=== PATIENT | male | born 1965 | race Caucasian/White ===

== ENCOUNTER 2024-03-06 10:04 | Outpatient (CLI) | payer OTHER, SELFPAY ==
--- NOTE | ~2024-03-06 | XR_ITS ---
XR chest 2V DATE: 03/06/2024 10:17 INDICATION: Chronic cough TECHNIQUE: 2 views COMPARISON: None FINDINGS: Normal heart size. No hilar or mediastinal enlargement. No pulmonary infiltrate or consolid ation, pleural effusion or pulmonary vascular congestion or pneumothorax is detected. IMPRESSION: No active cardiopulmonary disease Reviewed, dictated and finalized at location B.
== END 2024-03-06 10:05 ==
LOC: MICIMG 10:06
PROVIDERS: PCP Physician Assistant; Visit Provider Physician Assistant
DX: R05.3 Chronic cough (principal)
CPT/HCPCS: 71046

== ENCOUNTER 2024-09-28 00:23 | Day surgery (SDC) | payer OTHER, SELFPAY ==
[2024-09-18 12:26] VITALS: BMI 31.3
[2024-09-28 07:38] VITALS: BP 150/84; PULSE 88; RESP 18; TEMP 35.6; O2SAT 98; BMI 30.9
[2024-09-28] MEDS: LACTATED RINGERS 1,000 ML 150 ML IV CONT (07:49)
[2024-09-28 07:52] LABS: Glucose Point of Care 145 mg/dl (65-105)
--- NOTE | 2024-09-28 08:01 | P.HP_ITS ---
History of Present Illness History of Present Illness Consent: Risks, benefits, and alternatives have been discussed and questions answered. Patient agrees to proceed with procedure. Chief complaint: screening for malignant neoplasm of colon Narrative: John Harp is a 58 year old male here for first screening colonoscopy Review of Systems Review of Systems: All systems reviewed & are unremarkable except as noted in HPI and below PMFSH Past Medical History Medical History (Updated 09/28/24 @ 08:03 by Checo Webber MD) Colon cancer screening H/O: hypertension H/O diabetes mellitus Diabetes mellitus Hypertension Family History Family History (Updated 05/16/20 @ 15:14 by Cece Sherman [facility]) Father Glaucoma Mother Diabetes mellitus Sibling Non Hodgkin's lymphoma Grandparent Malignant neoplasm of prostate Social History Social History (Updated 05/16/20 @ 15:15 by Cece Sherman [facility]) Smoking status: Current some day smoker Tobacco type: cigars Alcohol intake: current Drinks per week: 4 Substance use: never Substance use type: does not use Living arrangements: with family Spiritual care concerns: No Meds Home Medications and Allergies Home Medications ?Medication ?Instructions ?Recorded ?Confirmed ?Type dapagliflozin propan 2.5 1,000 ea PO DAILY 09/18/24 09/28/24 History mg-metformin ER 1,000 mg tablet,ext rel 24hr (Xigduo XR) losartan 50 mg tablet 100 mg PO DAILY 09/18/24 09/28/24 History Allergies Allergy/AdvReac Type Severity Reaction Status Date / Time No Known Allergies Allergy Mild Verified 09/28/24 07:37 Vital Signs Vital Signs - 24 hr 09/28/24 07:38 Temperature 96.0 F L Pulse Rate 88 Respiratory Rate 18 Blood Pressure 150/84 H Pulse Oximetry 98 Oxygen Delivery Room Air Exam Const: General: comfortable and no acute distress HENMT: Face/Nose/Sinus: Normal nares present Eyes: General: appearance normal, both eyes and all related structures Neck: Neck: no JVD Resp: Auscultation: clear to auscultation bilaterally Cardio: Rate: regular rate Rhythm: regular rhythm GI: Inspection: non-distended GI Palp: Yes Soft to palpation Skin: General skin exam: normal color Neuro: General: gait normal Speech: normal speech Extrem: General: normal to inspection Psych: Mental Status: mental status grossly normal Assessment and Plan Assessment and plan (1) Colon cancer screening: Code(s): Z12.11 - Encounter for screening for malignant neoplasm of colon Status: Acute Assessment and Plan: colonoscopy
--- NOTE | 2024-09-28 08:09 | WPDANESEPPF ---
Anes - Initial Pre Proc Eval Procedure: Operation Date: 09/28/24 08:30 Proposed Procedures p Screening Colonoscopy - Checo Webber MD Date/Time: 09/28/24 08:09 Surgeon: Checo Webber MD Pre Op Diagnosis: neoplasm screening Pre Op Diagnosis: screening for malignant neoplasm of colon Patient Data Age: 58 Gender: M Height: 1.7 m Weight: 89.5 kg Last Vital Signs Temp 35.6 C L 09/28/24 07:38 Pulse 88 09/28/24 07:38 Resp 18 09/28/24 07:38 BP 150/84 H 09/28/24 07:38 Pulse Ox 98 09/28/24 07:38 O2 Del Method Room Air 09/28/24 07:38 Allergies Allergy/AdvReac Type Severity Reaction Status Date / Time No Known Allergies Allergy Mild Verified 09/28/24 07:37 Home Medications ?Medication ?Instructions ?Recorded ?Confirmed ?Type dapagliflozin propan 2.5 1,000 ea PO DAILY 09/18/24 09/28/24 History mg-metformin ER 1,000 mg tablet,ext rel 24hr (Xigduo XR) losartan 50 mg tablet 100 mg PO DAILY 09/18/24 09/28/24 History Laboratory Tests 09/28/24 07:47 POC Capillary Glucose 145 H mg/dl (65-105) Patient hx anesthesia problems: none Family hx anesthesia problems: none Results Review: All pre-operative results and documents have been reviewed as part of the pre-operative evaluation. [facility], [facility] Past Medical History Medical History Colon cancer screening H/O: hypertension H/O diabetes mellitus Diabetes mellitus Hypertension Family History Family History Father Glaucoma Mother Diabetes mellitus Sibling Non Hodgkin's lymphoma Grandparent Malignant neoplasm of prostate Social History Social History Smoking status: Current some day smoker Tobacco type: cigars Alcohol intake: current Drinks per week: 4 Substance use: never Substance use type: does not use Living arrangements: with family Spiritual care concerns: No Anes - Eval Final PreProcedure Day of Procedure 09/28/24 08:09 Patient weight: obese Heart: regular rate and rhythm Lungs: clear to auscultation Airway: Mallampati scale class III Neurological: alert and oriented Last oral intake: >/= 8 hours ASA classification: III Emergent: no Anesthetic plan: proceed Anesthesia type and monitoring: general GIVS and standard monitoring Results Review: All pre-operative results and documents have been reviewed as part of the pre-operative evaluation. Informed Consent: The patient's anesthetic plan and its attendant risks and benefits were discussed with the patient/family/POA. Questions were solicited and answers provided to the satisfaction of the patient/family/POA.
[2024-09-28 08:25] VITALS: BP 108/77; PULSE 76; RESP 18; O2SAT 97
[2024-09-28 08:35] VITALS: BP 115/81; PULSE 80; RESP 17; O2SAT 97
[2024-09-28 08:45] VITALS: BP 123/86; PULSE 79; RESP 19; O2SAT 99
--- NOTE | 2024-09-28 08:51 | SUR.PHASEII ---
Pt's brother from colon cancer. Dr. Vidales made aware. Pt to come back for his next colonoscopy in 5 years. Pt and family made aware.
--- OUTSIDE RECORDS SUMMARY | 2024-10-03 08:39 | XMS_ITS | Continuity of Care Document ---
Author Organization [facility] [place] Address [address] [place] [address] Care Team Providers Care Staff Registered Nurse Name Role Phone JEAN LJOA Primary Care Provider Unavailab le Assessment Encounter Date Assessment Date Assessment LastModified by Organization Details LastModified Time 07/17/2024 07/17/2024 Scheduled Colonoscopy: Sep 28 At [facility] planned. Not available 07/17/2024 10:13:09 Plan of Treatment Reminders Order Date Submit Date Provider Last Modified By Organization Details Last Modified Time Details Appointments ANY 15 2024 08:30A M ZAHRA Triplett Not available Not available Not available Lab lipid panel, serum 2023 025 [facility], [address], [place], [address], 07/17/2024 10:27:02 HbA1c (hemoglob in A1c), blood 2023 025 [facility], [address], [place], [address], 07/17/2024 10:27:02 CBC w/ auto diff 2023 025 [facility], [address], [place], [address], 07/17/2024 10:27:02 CMP, serum or plasma 2023 025 [facility], [address], [place], [address], 07/17/2024 10:27:02 Referral None recorded. Procedures None recorded. Surgeries None recorded. Imaging None recorded. Medication Orders Xigduo XR 2.5 mg-1,000 mg tablet,ex tended release 2023 [facility] [id number], [place], [address], 07/17/2024 10:27:13 losartan 100 mg tablet 2023 [facility] [id number], [place], [address], 07/17/2024 10:27:15 Patient TargetsNo targets recorded. Patient Instructions Encounter Date Encounter Id Patient Instructions Last Modified By Organization Details Last Modified Time 07/17/2024 [id number] A healthy lifestyle: care instructions Not available 07/17/2024 10:27:02 Reason for Referral None Reported. Problems Name Problem SNOMED Code Status Onset Date Resolution Date Notes Provider Name and Address Organization Details Recorded Time Uncontrolle d type 2 diabetes mellitus 440594440 Active 2023 ZAHRA Triplett Attn: Octavio sexton,[address] [facility], [place], [address], [facility] - [facility] 4 10:32:38 Benign essential hypertensio n 1762675 Active 2023 ZAHRA Triplett Attn: Octavio sexton,[address] [facility], [place], [address], [place] [facility] 4 10:32:39 Obesity 817471725 Active 2023 ZAHRA Triplett Attn: Octavio sexton,[address] [facility], [place], [address], [place] [facility] 4 10:33:18 Body mass index 30+ - obesity 170663157 Active 2023 ZAHRA Triplett Attn: Octavio sexton[address] [facility], [place], [address], [place] [facility] 4 10:33:19 Family history of cancer of colon 037849000 Active 2023 ZAHRA Triplett Attn: Octavio sexton,[address] [facility], [place], [address], [place] [facility] 4 15:27:40 Long-term drug therapy Active 2023 ZAHRA Triplett Attn: Octavio sexton,[address] [facility], [place], [address], [place] [facility] 4 15:27:51 Dyslipidemi a 681600634 Active 2023 ZAHRA Triplett Attn: Octavio sexton,[address] [facility], [place], [address], [place] [facility] 4 15:28:20 Lesion of skin of face 296094756820 Active 2023 ZAHRA Triplett Attn: Octavio sexton,[address] [facility], [place], [address], [place] [facility] 4 09:19:39 Problem Notes None recorded. Medical Equipment None Reported. Allergies No known drug allergies Medications Name Sig Start Date Stop Date Status Note LastModified by Organization Details LastModified Time losartan 50 mg tablet TAKE 1 TABLET BY MOUTH EVERY DAY 07/17 completed Not Available Not Available Not Available erythromyci n 5 mg/gram (0.5 %) eye ointment APPLY 1 CM RIBBON INTO THE LOWER CONJUNCTI AUBREE SAC(S) IN THE AFFECTED EYE(S) 3 TIMES PER DAY active Not Available Not Available No t Available montelukast 10 mg tablet TAKE 1 TABLET BY MOUTH EVERY DAY 04/10 completed Not Available Not Available Not Available losartan 100 mg tablet TAKE 1 TABLET BY MOUTH EVERY DAY. STOP 50 MG DOSE active Not Available Not Available No t Available Xigduo XR 2.5 mg-1,000 mg tablet,exte nded release Take 1 tablet every day by oral route with meal(s). 2023 active Not Available Not Available Not Avai lable Vitals Date Recorded Body height Body mass index (BMI) Body weight Heart rate Oxygen saturation Oxygen saturation in Arterial blood by Pulse oximetry Systolic blood pressure Diastolic blood pressure Provider Name and Address Organization Details Last Updated DateTime 4 170.18 cm 32.5 kg/m2 64345.3 4 g 65 /min 98 % 98 % 150 mm[Hg] 98 mm[Hg] Brett Rubio MA [facility] 09:53:10 Date Recorded Systolic blood pressure Diastolic blood pressure Provider Name and Address Organization Details Last Updated DateTime 07/17/2024 150 mm[Hg] 90 mm[Hg] ZAHRA Triplett Attn: Accounting,[address] [place], [address], [facility] 07/17/2024 10:29:09 Social History Question Answer Notes LastModified by Organizat ion Details LastModified Time Tobacco Smoking Status Never Smoker Angela Mesa MA null, [facility] 03/06/2024 09:47:30 Do You Have An Advance Directive? No Information not available 04/10/2024 What Is Your Level Of Alcohol Consumption? Occasional Information not available 03/06/2024 Are You Blind Or Do You Have Difficulty Seeing? No Information not available 03/06/2024 What Is Your Level Of Caffeine Consumption? Moderate Information not available 04/10/2024 In The 14 Days Before Symptom Onset, Have You Had Close Contact With A Laboratory-confir med COVID-19 While That Case Was Ill? No Information not available 04/10/2024 In The 14 Days Before Symptom Onset, Have You Had Close Contact With A Person Who Is Under Investigation For COVID-19 While That Person Was Ill? No Information not available 04/10/2024 Have You Been To An Area Known To Be High Risk For COVID-19? No Information not available 04/10/2024 Are You Deaf Or Do You Have Serious Difficulty Hearing? Yes Information not available 03/06/2024 What Type Of Diet Are You Following? REGULAR Information not available 04/10/2024 Are There Any Guns Present In Your Home? No Information not available 04/10/2024 What Was The Date Of Your Most Recent Tobacco Screening? 09/11/2024 crevisma Information not available 09/11/2024 What Is Your Relationship Status? Information not available 03/06/2024 Do You Use Your Seat Belt Or Car Seat Routinely? Yes Information not available 03/06/2024 Do You Have Smoke And Carbon Monoxide Detectors In Your Home? Yes Information not available 04/10/2024 Do You Feel Stressed (tense, Restless, Nervous, Or Anxious, Or Unable To Sleep At Night)? [id number] Information not available 03/06/2024 Do You Use Any Illicit Or Recreational Drugs? No Information not available 04/10/2024 Do You Use Sunscreen Routinely? Yes Only In The Sun Information not available 04/10/2024 Has Tobacco Cessation Counseling Been Provided? No Information not available 04/10/2024 Do You Or Have You Ever Used Any Other Forms Of Tobacco Or Nicotine? No Information not available 04/10/2024 Sex: Male Functional Status Question Answer Note LastModified by Organizat ion Details LastModified Time Are you able to care for yourself? Yes Information not available 03/06/2024 What is your exercise level? Occasional walking Information not available 04/10/2024 Mental Status None recorded. Family History Relationship Description Onset Age of this Age Resolved Age Notes LastModified by Organization Details LastModified Time Brother Malignant tumor of colon [email or web address] Not available 2023 10:32:52 Father Dementia [email or web address] Not availabl e 03/06/2024 10:32:58 Sister Diabetes mellitus [email or web address] Not available 2023 10:33:05 Sister Hypertensive disorder apaytonma Not available 2023 10:33:10 Medical History Condition Response Diabetes Y Past Encounters Encounter ID Performer Location Encounter Start Date Encounter Closed Date Diagnosis/Indication Diagnosis SNOMED-CT Code Diagnosis ICD10 Code [id number] ZAHRA Triplett [facility] [place] [address] [place] [address] 07/17/2024 09:47:04 07/17/2024 11:02:39 Uncontrolled type 2 diabetes mellitus 308970635 E11.65 Benign ess ential hypertension 1771871 I10 Dyslipidemia 635305199 E 78.5 Long-term drug therapy 929063570 Z79.899 Body mass index 30+ - obesity 013549275 Z68.32 Obesity 005050908 E66.9 Family his tory of cancer of colon 431775836 Z80.0 Health Concerns Section Related Observation LastModified by Organization Detai ls LastModified Time None Recorded Concern Status LastModified by Organization Details LastModified Time None Recorded Payers Encounter Date Sequence Insurance Name Policy Number Policy Mathis Covered Member ID Mathis Member ID Guarantor Name 07/17/2024 1 [employer] [facility] (POS II) [id number] Alon Harp [id number] Alon Harp Notes Date Note Type Note Provider Name and Address Organization Details Recorded Time 07/17/20 24 text/htm l DiabetesReported bypatient.Duration:chronic Control:usually well controlled; improved since last visit; treated with diet and oral medications; hemoglobin A1C has been 8-9; hemoglobin A1C goal is less than 7 Compliance:compliant with medications; compliant with follow-up visits;noncompliant with diet;noncompliant with home glucose monitoring; no side effects from medications Self Care:checking feet regularly;not monitoring home glucose;not seeing eye doctor yearly;not taking aspirin daily Associated Symptoms:no weight gain; no weight loss; no dizziness; no sweats; no headaches; no confusion; no increased thirst; no increased appetite; no increased urination; no blurred vision; no numbness of feet; no calluses on feetNotes: A1c is down to 7.2% from 8.3%.HyperlipidemiaReported bypatient.Type of hyperlipidemia:hypercholester olemia Duration:new onset Control:not at goal Current Therapy:last cholesterol level: (176); last LDL level: (108); last triglyceride level: (125); last HDL level: (44) Compliance:compliant;noncompl iant with diet;does not exercise Complications:no coronary artery disease; no peripheral artery disease; no cardiovascular disease Risk Factors:diabetes;hypertension ;obesity;low HDL levelHypertensionReported bypatient.Notes:started on losartan 50mg daily at last visit. ZAHRA Triplett Attn: Accounting,[address] [place], [address], [facility] 08/09/2024 19:22:02
--- OUTSIDE RECORDS SUMMARY | 2024-10-03 08:39 | XMS_ITS | Continuity of Care Document ---
Author Organization [facility] Address [address] [place] [address] Care Team Providers Care Hardwood Floor Finisher Name Role Phone JEAN LOJA Primary Care Provider Unavailab le Assessment Encounter Date Assessment Date Assessment LastModified by Organization Details LastModified Time 09/11/2024 09/11/2024 Patient is due for an annual diabetic eye exam and we have encouraged him to schedule with [facility] eye care in [facility]. Not available 09/11/2024 09:19:58 Plan of Treatment Reminders Order Date Submit Date Provider Last Modified By Organization Details Last Modified Time Details Appointments ANY 15 025 08:30AM ZAHRA Triplett Not available Not available Not available Lab None record ed. Referral None record ed. Procedures None record ed. Surgeries None record ed. Imaging None record ed. Medication Orders None record ed. Patient TargetsNo targets recorded. Patient InstructionsNo instructions recorded. Reason for Referral None Reported. Problems Name Problem SNOMED Code Status Onset Date Resolution Date Notes Provider Name and Address Organization Details Recorded Time Uncontrolle d type 2 diabetes mellitus 311716341 Active 2023 ZAHRA Triplett Attn: Octavio g,[address] [facility], [place], [address], [facility] 4 10:32:38 Benign essential hypertensio n 9048003 Active 2023 ZAHRA Tripeltt Attn: Octavio g,[address], [place], [address], [facility] 4 10:32:39 Obesity 091912392 Active 2023 ZAHRA Triplett Attn: Octavio sexton,[address] [facility], [place], [address], [place] [facility] 4 10:33:18 Body mass index 30+ - obesity 507886684 Active 2023 ZAHRA Triplett Attn: Octavio sexton,[address] [facility], [place], [address], [place] [facility] 4 10:33:19 Family history of cancer of colon 720513786 Active 2023 ZAHRA Triplett Attn: Octavio sexton,[address] [place], [address], [place] [facility] 4 15:27:40 Long-term drug therapy Active 2023 ZAHRA Triplett Attn: Octavio sexton,[address] [place], [address], [place] [facility] 4 15:27:51 Dyslipidemi a 519763788 Active 2023 ZAHRA Triplett Attn: Octavio sexton,[address] [place], [address], [facility] 4 15:28:20 Lesion of skin of face 618157669229 Active 2023 ZAHRA Triplett Attn: Octavio sexton,[address] [place], [address], [place] [facility] 4 09:19:39 Problem [...] height Body mass index (BMI) Body weight Oxygen saturation Oxygen saturation in Arterial blood by Pulse oximetry Heart rate Systolic blood pressure Diastolic blood pressure Provider Name and Address Organization Details Last Updated DateTime 4 170.18 cm 32.2 kg/m2 55460.3 1 g 97 % 97 % 90 /min 140 mm[Hg] 80 mm[Hg] Adrienne Valentin MA [facility] 08:55:01 Date Recorded Respiratory rate Systolic blood pressure Diastolic blood pressure Provider Name and Address Organization Details Last Updated DateTime 09/11/2024 16 /min 128 mm[Hg] 82 mm[Hg] ZAHRA Triplett Attn: Accounting, [address] [place], [address], [facility] 09/11/2024 09:18:52 Social History Question Answer Notes LastModified by Organizat ion Details LastModified Time Tobacco Smoking Status Never Smoker Angela Mesa MA [facility], [facility] 03/06/2024 09:47:30 Do You Have An Advance [...] Anxious, Or Unable To Sleep At Night)? [id number] Information not available 03/06/2024 Do You Use [...] Diagnosis/Indication Diagnosis SNOMED-CT Code Diagnosis ICD10 Code [id number] ZAHRA Triplett [facility] [place] [facility] [address] [place] [address] 09/11/2024 08:36:59 09/11/2024 12:43:48 Benign essential hypertension 0119010 I10 Lesion of skin of face 0290704999 06 L98.9 Long-term drug therapy 959823331 Z79.899 Health Concerns Section Related Observation LastModified by Organization Detai ls LastModified Time None Recorded Concern Status LastModified by Organization Details LastModified Time None Recorded Payers Encounter Date Sequence Insurance Name Policy Number Policy Mathis Covered Member ID Mathis Member ID Guarantor Name 09/11/2024 1 [facility] (POS II) [id number] Alon Harp [id number] Alon Harp Notes Date Note Type Note Provider Name and Address Organization Details Recorded Time 09/11/2024 text/html DiabetesReported bypatient.Duration:chr onic Control:usually well controlled; improved since last visit; [...] feetNotes: A1c is down to 7.2% from 8.3%.HypertensionRepor escobar bypatient.Notes:starte d on losartan 50mg daily at last visit. Patient has a skin lesion on the right periorbital region that has been for approximately 3 months to 4 months. It does not bother him at all there has been no drainage or discharge he feels like it might be getting just a little bit bigger. He has also had a stye on his right lower eyelid that resolved but there still a bit of a red spot there. He has not seen the eye doctor. ZAHRA Triplett Attn: Accounting,[address] [place], [address], [place] [facility] 09/11/2024 09:20:14
--- OUTSIDE RECORDS SUMMARY | 2024-10-03 08:39 | XMS_ITS | Encounter Summary ---
Author Organization [facility] Address [address] [place] [address] Care Team Providers Care Internal Medicine Specialist Name Role Phone Unavailable Primary Care Provider Unavailabl e Encounter Details Date Type Department Care Team (Late st Contact Info) Description 10/12/2020 Lab Requisition [facility] Testing [facility] [address] [place] [address] Miles, [place] [address] [place] [address] Social History Tobacco Use Types Packs/Day Years Used Date Smoking Tobacco: Never Assessed Sex and Gender Information Value Date Recorded Sex Assigned at Not on file Legal Sex Male 9:11 AM [facility] THE [facility] Gender Identity Not on file Sexual Orientation Not on file documented as of this encounter Plan of Treatment Not on file documented as of this encounter Procedures Procedure Name Priority Date/Time Associated Diagnosis Comments SARS-COV-2 PCR [facility] ONLY Routine 10/12/2020 9:19 AM DIRECT[facility] THE [facility] documented in this encounter Visit Diagnoses Not on filedocumented in this encounter
--- OUTSIDE RECORDS SUMMARY | 2024-10-03 08:39 | XMS_ITS | Encounter Summary ---
Author Organization [facility] Address [address] [place] [address] Care Team Providers Care Rehabilitator Name Role Phone Unavailable Primary Care Provider Unavailabl e Encounter Details Date Type Department Care Team (Late st Contact Info) Description 10/12/2020 9:30 AM TRAVELER CHANGER Rapid Evaluation [facility] Testing [address] [address] Social History Tobacco Use Types Packs/Day Years Used Date Smoking Tobacco: Never Assessed Sex and Gender Information Value Date Recorded Sex Assigned at Not on file Legal Sex Male 9:11 AM TRAVELER CHANGER Gender Identity Not on file Sexual Orientation Not on file documented as of this encounter Plan of Treatment Not on file documented as of this encounter Visit Diagnoses Not on filedocumented in this encounter
--- OUTSIDE RECORDS SUMMARY | 2024-10-03 08:39 | XMS_ITS | Clinical Summary ---
Author Organization [facility] Care Team Providers Care Wafer Polishing Worker Name Role Phone Unavailable Primary Care Provider Unavailabl e Social History Tobacco Use Types Packs/Day Years Used Date Smoking Tobacco: Never Assessed Sex and Gender Information Value Date Recorded Sex Assigned at Not on file Legal Sex Male 9:11 AM [employer] Gender Identity Not on file Sexual Orientation Not on file Plan of Treatment Health Maintenance Due Date Last Done Comments Hepatitis C Virus (HCV) Screening 1966 TdaP Immunization 1966 Hepatitis B Immunization (1 of 3 - 19+ 3-dose series) 1985 Colonoscopy 12/18/2011 Colorectal Cancer Screening 12/18/2011 Cologuard 2016 Immunochemical Fecal Occult Blood 2016 Zoster Immunization (1 of 2) 2016 PSA Discussion 2021 SARS-COV-2 Immunization ( season) 2023 Influenza Immunization (Seas on Ended) 2024 Meningococcal Immunization (ACWY) Aged Out No longer eligible based on patient's age to complete this topic Pneumococcal Immunization Combined Aged Out No longer eligible based on patient's age to complete this topic Rotavirus Immunization Aged Out No lo nger eligible based on patient's age to complete this topic
--- OUTSIDE RECORDS SUMMARY | 2024-10-03 08:39 | XMS_ITS | Data Portability ---
Author Organization Jessica MONTALVO Address [address] [place] [address] Care Team Providers Care Broodmare Foreman Name Role Phone JEAN LOJA Primary Care Provider Unavailab le Assessment Encounter Date Assessment Date Assessment LastModified by Organization Details LastModified Time 07/17/2024 07/17/2024 Scheduled Colonoscopy: Sep 28 At [facility] planned. Not available 07/17/2024 10:13:09 09/11/2024 09/11/2024 Patient is due for an annual diabetic eye exam and we have encouraged him to schedule with [facility] in [facility]. Not available 09/11/2024 09:19:58 Plan of Treatment Reminders Order Date Submit Date Provider Last Modified By Organization Details Last Modified Time Details Appointments ANY 15 2024 08:30A M ZAHRA Triplett Not available Not available Not available Lab TSH + free T4, serum 2023 024 [facility], [address], [place], [address], 03/07/2024 10:38:40 lipid panel, serum 2023 024 [facility], [address], [place], [address], 03/07/2024 10:38:41 CBC w/ auto diff 2023 024 [facility], [address], [place], [address], 03/07/2024 10:38:45 CMP, serum or plasma 2023 024 [facility], [address], [place], [address], 03/07/2024 10:38:42 vitamin B12 + folate, serum or blood 2023 024 [facility], [address], [place], [address], 03/07/2024 10:38:43 PSA, total, serum or plasma 2023 024 [facility], [address], [place], [address], 03/07/2024 10:38:46 HbA1c (hemoglob in A1c), blood 2023 024 [facility], [address], [place], [address], 03/07/2024 10:38:44 albumin/c reatinine , mass ratio, urine 2023 024 [facility], [address], [place], [address], 03/07/2024 10:38:39 microalbu min, urine 2023 024 [facility], [address], [place], [address], 03/20/2024 11:53:41 lipid panel, serum 2023 024 [email or web address] [facility], [address] [facility], [place], [address], 09/01/2024 15:32:01 HbA1c (hemoglob in A1c), blood 2023 024 [facility], [address], [place], [address], 06/29/2024 16:45:06 CBC w/ auto diff 2023 024 [email or web address] [facility], [address], [place], [address], 09/09/2024 15:41:57 CMP, serum or plasma 2023 024 [email or web address] [id number] [facility], [address], [place], [address], 09/09/2024 15:42:03 lipid panel, serum 2023 025 [facility], [address], [facility] [address], [place], [address], 07/17/2024 10:27:02 HbA1c (hemoglob in A1c), blood 2023 025 [facility], [address], [place], [address], 07/17/2024 10:27:02 CBC w/ auto diff 2023 025 [facility], [address], [place], [address], 07/17/2024 10:27:02 CMP, serum or plasma 2023 025 [facility], [address], [place], [address], 07/17/2024 10:27:02 Referral None recorded. Procedures colonosco py screening (PROC) [address] [facility], [address], [email or web address], [place], [address], 09/09/2024 15:41:22 colonosco py screening (PROC) 2023 [facility], [address], [email or web address], [place], [address], 09/30/2024 17:31:39 Surgeries None recorded. Imaging XR, chest, 2 view 2023 [facility], [address], [place], [address], 03/07/2024 08:02:[address] 10 mg tablet 2023 024 [facility] [address], [address], 04/10/2024 09:44:02 losartan 50 mg tablet 2023 024 [facility] [address], [address], 07/17/2024 10:25:39 Xigduo XR 2.5 mg-1,000 mg tablet,ex tended release 2023 024 [facility] [address], [place], [address], 07/17/2024 10:27:13 losartan 100 mg tablet 2023 024 [facility] [address], [address], 07/17/2024 10:27:15 Patient TargetsNo targets recorded. Patient Instructions Encounter Date Encounter Id Patient Instructions Last Modified By Organization Details Last Modified Time 03/06/2024 [id number] A healthy lifestyle: care instructions Not available 03/06/2024 10:33:16 04/10/2024 [id number] A healthy lifestyle: care instructions Not available 04/10/2024 10:16:52 07/17/2024 [id number] A healthy lifestyle: care instructions Not available 07/17/2024 10:27:02 Reason for Referral None Reported. Results Created Date Observation Date Name Description Value Unit Range Abnormal Flag Note LastModifiedBy Organization Detail LastModifiedTime 03/06/20 24 03/07/2024 ALBUM IN/CR EATIN INE RATIO ,URIN E creatinine, urine 42.8 mg/dL notest ab. Not Available [facility] ([facility]) [address] [place], [address], 03/07/2024 10:38:39 03/06/20 24 03/07/2024 ALBUM IN/CR EATIN INE RATIO ,URIN E albumin, urine 5.2 ug/mL notest ab. Not Available [facility] ([facility]) [address] [place], [address], 03/07/2024 10:38:39 03/06/20 24 03/07/2024 ALBUM IN/CR EATIN INE RATIO ,URIN E alb/creat ratio 12 mg/g_ creat 0-29 Geovanna l: 0 - 29 Moder ately incre ased: 30 - 300 Sever kamari incre ased: >300 Not Available [facility] ([facility]) [address] [place], [address], 03/07/2024 10:38:39 03/06/20 24 03/07/2024 TSH+F REE T4 TSH 0.785 uIU/m L 0.450- 4.500 Not Available [facility] ([facility]) [address] [place], [address], 03/07/2024 10:38:40 03/06/20 24 03/07/2024 TSH+F REE T4 T4,free(dire ct) 1.42 NG/dL 0.82-1 .77 Not Available [facility] ([facility]) [address] [place], [address], 03/07/2024 10:38:40 03/06/20 24 03/07/2024 LIPID PANEL WITH LDL/H DL RATIO cholesterol, total 165 mg/dL 100-19 9 Not Available [facility] ([facility]) [address] [place], [address], 03/07/2024 10:38:41 03/06/20 24 03/07/2024 LIPID PANEL WITH LDL/H DL RATIO triglyceride s 132 mg/dL 0-149 Not Available [facility] ([facility]) [address] [place], [address], 03/07/2024 10:38:41 03/06/20 24 03/07/2024 LIPID PANEL WITH LDL/H DL RATIO HDL cholesterol 33 mg/dL >39 below low normal Not Available [facility] ([facility]) [address] [place], [address], 03/07/2024 10:38:41 03/06/20 24 03/07/2024 LIPID PANEL WITH LDL/H DL RATIO VLDL cholesterol gaston 24 mg/dL 5-40 Not Available [facility] ([facility]) [address] [place], [address], 03/07/2024 10:38:41 03/06/20 24 03/07/2024 LIPID PANEL WITH LDL/H DL RATIO LDL chol calc ([facility]) 108 mg/dL 0-99 above high normal Not Available [facility] ([facility]) [address] [place], [address], 03/07/2024 10:38:41 03/06/20 24 03/07/2024 LIPID PANEL WITH LDL/H DL RATIO LDL/HDL ratio 3.3 ratio 0.0-3. 6 LDL/H DL Ratio Men Women 1/2 Avg.R isk 1.0 1.5 Avg.R isk 3.6 3.2 2X Avg.R isk 6.2 5.0 3X Avg.R isk 8.0 6.1 Not Available [facility] ([facility]) [address] [place], [address], 03/07/2024 10:38:41 03/06/20 24 03/07/2024 COMP. METAB OLIC PANEL (14) glucose 161 mg/dL 70-99 above high normal Not Available [facility] ([facility]) [address] [place], [address], 03/07/2024 10:38:42 03/06/20 24 03/07/2024 COMP. METAB OLIC PANEL (14) BUN 10 mg/dL 6-24 Not Available [facility] ([facility]) [address] [place], [address], 03/07/2024 10:38:42 03/06/20 24 03/07/2024 COMP. METAB OLIC PANEL (14) creatinine 0.95 mg/dL 0.76-1 .27 Not Available [facility] ([facility]) [address] [place], [address], 03/07/2024 10:38:42 03/06/20 24 03/07/2024 COMP. METAB OLIC PANEL (14) eGFR 93 mL/mi n/1.7 3 >59 Not Available [facility] ([facility]) [address] [place], [address], 03/07/2024 10:38:42 03/06/20 24 03/07/2024 COMP. METAB OLIC PANEL (14) BUN/creatini ne ratio 11 9-20 Not Available [facility] ([facility]) [address] [place], [address], 03/07/2024 10:38:42 03/06/20 24 03/07/2024 COMP. METAB OLIC PANEL (14) sodium 137 mmol/ L 134-14 4 Not Available [facility] ([facility]) [address] [place], [address], 03/07/2024 10:38:42 03/06/20 24 03/07/2024 COMP. METAB OLIC PANEL (14) potassium 4.6 mmol/ L 3.5-5. 2 Not Available [facility] ([facility]) [address] [facility], [place], [address], 03/07/2024 10:38:42 03/06/20 24 03/07/2024 COMP. METAB OLIC PANEL (14) chloride 97 mmol/ L 96-106 Not Available [facility] ([facility]) [address] [facility], [place], [address], 03/07/2024 10:38:42 03/06/20 24 03/07/2024 COMP. METAB OLIC PANEL (14) carbon dioxide, total 26 mmol/ L 20-29 Not Available [facility] ([facility]) [address] [facility], [place], [address], 03/07/2024 10:38:42 03/06/20 24 03/07/2024 COMP. METAB OLIC PANEL (14) calcium 9.5 mg/dL 8.7-10 .2 Not Available [facility] ([facility]) [address] [facility], [place], [address], 03/07/2024 10:38:42 03/06/20 24 03/07/2024 COMP. METAB OLIC PANEL (14) protein, total 7.0 g/dL 6.0-8. 5 Not Available [facility] ([facility]) [address] [facility], [place], [address], 03/07/2024 10:38:42 03/06/20 24 03/07/2024 COMP. METAB OLIC PANEL (14) albumin 4.4 g/dL 3.8-4. 9 Not Available [facility] ([facility]) [address] [place], [address], 03/07/2024 10:38:42 03/06/20 24 03/07/2024 COMP. METAB OLIC PANEL (14) globulin, total 2.6 g/dL 1.5-4. 5 Not Available [facility] ([facility]) [address] [place], [address], 03/07/2024 10:38:42 03/06/20 24 03/07/2024 COMP. METAB OLIC PANEL (14) A/G ratio 1.7 1.2-2. 2 Not Available [facility] ([facility]) [address] [facility] [place], [address], 03/07/2024 10:38:42 03/06/20 24 03/07/2024 COMP. METAB OLIC PANEL (14) bilirubin, total 0.5 mg/dL 0.0-1. 2 Not Available [facility] ([facility]) [address] [facility] [place], [address], 03/07/2024 10:38:42 03/06/20 24 03/07/2024 COMP. METAB OLIC PANEL (14) alkaline phosphatase 90 IU/L 44-121 Not Available [facility] ([facility]) [address] [facility], [address], 03/07/2024 10:38:42 03/06/20 24 03/07/2024 COMP. METAB OLIC PANEL (14) AST (SGOT) 28 IU/L 0-40 Not Available [facility] ([facility]) [address] [facility] [place], [address], 03/07/2024 10:38:42 03/06/20 24 03/07/2024 COMP. METAB OLIC PANEL (14) ALT (SGPT) 55 IU/L 0-44 above high normal Not Available [facility] ([facility]) [address] [facility] [place], [address], 03/07/2024 10:38:42 03/06/20 24 03/07/2024 VITAM IN B12 AND FOLAT E vitamin B12 823 pg/mL 232-12 45 Not Available [facility] ([facility]) [address] [facility] [place], [address], 03/07/2024 10:38:43 03/06/20 24 03/07/2024 VITAM IN B12 AND FOLAT E folate (folic acid), serum 17.7 NG/mL >3.0 A serum folat e charlotte ntrat ion of less than 3.1 ng/mL is consi dered to repre sent clini gaston defic iency . Not Available [facility] ([facility]) [address] [facility], [place], [address], 03/07/2024 10:38:43 03/06/20 24 03/07/2024 HEMOG LOBIN A1C hemoglobin A1C 8.3 % 4.8-5. 6 above high normal Predi abete s: 5.7 - 6.4 Diabe ap: >6.4 Glyce naomi contr ol for adult s with diabe ap: <7.0 Not Available [facility] ([facility]) [address] [facility], [place], [address], 03/07/2024 10:38:44 03/06/20 24 03/07/2024 CBC WITH DIFFE RENTI AL/PL ATELE T WBC 7.7 x10e3 /uL 3.4-10 .8 Not Available [facility] ([facility]) [address] [facility], [place], [address], 03/07/2024 10:38:45 03/06/20 24 03/07/2024 CBC WITH DIFFE RENTI AL/PL ATELE T RBC 5.20 x10e6 /uL 4.14-5 .80 Not Available [facility] ([facility]) [address] [facility], [place], [address], 03/07/2024 10:38:45 03/06/20 24 03/07/2024 CBC WITH DIFFE RENTI AL/PL ATELE T hemoglobin 16.4 g/dL 13.0-1 7.7 Not Available [facility] ([facility]) [address] [facility], [place], [address], 03/07/2024 10:38:45 03/06/20 24 03/07/2024 CBC WITH DIFFE RENTI AL/PL ATELE T hematocrit 48.2 % 37.5-5 1.0 Not Available [facility] ([facility]) [address] [facility], [place], [address], 03/07/2024 10:38:45 03/06/20 24 03/07/2024 CBC WITH DIFFE RENTI AL/PL ATELE T MCV 93 fL 79-97 Not Available [facility] ([facility]) [address] [facility], [place], [address], 03/07/2024 10:38:45 03/06/20 24 03/07/2024 CBC WITH DIFFE RENTI AL/PL ATELE T MCH 31.5 pg 26.6-3 3.0 Not Available [facility] ([facility]) [address] [facility], [place], [address], 03/07/2024 10:38:45 03/06/20 24 03/07/2024 CBC WITH DIFFE RENTI AL/PL ATELE T MCHC 34.0 g/dL 31.5-3 5.7 Not Available [facility] ([facility]) [address] [facility], [place], [address], 03/07/2024 10:38:45 03/06/20 24 03/07/2024 CBC WITH DIFFE RENTI AL/PL ATELE T RDW 11.7 % 11.6-1 5.4 Not Available [facility] ([facility]) [address] [facility], [place], [address], 03/07/2024 10:38:45 03/06/20 24 03/07/2024 CBC WITH DIFFE RENTI AL/PL ATELE T platelets 283 x10e3 /uL 150-45 0 Not Available [facility] ([facility]) [address] [facility], [place], [address], 03/07/2024 10:38:45 03/06/20 24 03/07/2024 CBC WITH DIFFE RENTI AL/PL ATELE T neutrophils 72 % notest ab. Not Available [facility] ([facility]) [address] [facility], [place], [address], 03/07/2024 10:38:45 03/06/20 24 03/07/2024 CBC WITH DIFFE RENTI AL/PL ATELE T lymphs 19 % notest ab. Not Available [facility] ([facility]) [address] [facility], [place], [address], 03/07/2024 10:38:45 03/06/20 24 03/07/2024 CBC WITH DIFFE RENTI AL/PL ATELE T monocytes 6 % notest ab. Not Available [facility] ([facility]) [address] [facility], [place], [address], 03/07/2024 10:38:45 03/06/20 24 03/07/2024 CBC WITH DIFFE RENTI AL/PL ATELE T eos 2 % notest ab. Not Available [facility] ([facility]) [address] [facility], [place], [address], 03/07/2024 10:38:45 03/06/20 24 03/07/2024 CBC WITH DIFFE RENTI AL/PL ATELE T basos 1 % notest ab. Not Available [facility] ([facility]) [address] [facility], [place], [address], 03/07/2024 10:38:45 03/06/20 24 03/07/2024 CBC WITH DIFFE RENTI AL/PL ATELE T neutrophils (absolute) 5.6 x10e3 /uL 1.4-7. 0 Not Available [facility] ([facility]) [address] [facility], [place], [address], 03/07/2024 10:38:45 03/06/20 24 03/07/2024 CBC WITH DIFFE RENTI AL/PL ATELE T lymphs (absolute) 1.4 x10e3 /uL 0.7-3. 1 Not Available [facility] ([facility]) [address] [facility], [place], [address], 03/07/2024 10:38:45 03/06/20 24 03/07/2024 CBC WITH DIFFE RENTI AL/PL ATELE T monocytes(ab solute) 0.5 x10e3 /uL 0.1-0. 9 Not Available [facility] ([facility]) [address] [facility], [place], [address], 03/07/2024 10:38:45 03/06/20 24 03/07/2024 CBC WITH DIFFE RENTI AL/PL ATELE T eos (absolute) 0.1 x10e3 /uL 0.0-0. 4 Not Available [facility] ([facility]) [address] [facility], [place], [address], 03/07/2024 10:38:45 03/06/20 24 03/07/2024 CBC WITH DIFFE RENTI AL/PL ATELE T baso (absolute) 0.0 x10e3 /uL 0.0-0. 2 Not Available [facility] ([facility]) [address] [place], [address], 03/07/2024 10:38:45 03/06/20 24 03/07/2024 CBC WITH DIFFE RENTI AL/PL ATELE T immature granulocytes 0 % notest ab. Not Available [facility] ([facility]) [address] [place], [address], 03/07/2024 10:38:45 03/06/20 24 03/07/2024 CBC WITH DIFFE RENTI AL/PL ATELE T immature grans (abs) 0.0 x10e3 /uL 0.0-0. 1 Not Available [facility] ([facility]) [address] [place], [address], 03/07/2024 10:38:45 03/06/20 24 03/07/2024 PROST ATE-S PECIF IC AG prostate specific Ag 0.9 NG/mL 0.0-4. 0 Fabi ECLIA metho dolog y. Accor ding to the Ameri can Urolo gical Assoc iatio n, Serum PSA shoul d decre ase and remai n at undet ectab le level s after radic al prost atect loyd. The AUA defin es bioch emica l recur rence as an initi al PSA value 0.2 ng/mL or great er follo wed by a subse quent confi rmato ry PSA value 0.2 ng/mL or great er. Value s obtai dk with diffe rent assay metho ds or kits canno t be used inter weir eably . Resul ts canno t be inter prete d as absol ronny evide nce of the prese nce or absen ce of guillermo rhoades se. Not Available [facility] ([facility]) [address] [facility], [place], [address], 03/07/2024 10:38:46 03/07/20 24 03/06/2024 XR, chest , 2 view No observ ation record ed. [facility] [address], [place], [address], 04/10/2024 10:09:59 Result Notes None recorded. Problems Name Problem SNOMED Code Status Onset Date Resolution Date Notes Provider Name and Address Organization Details Recorded Time Uncontrolle d type 2 diabetes mellitus 980475343 Active 2023 ZAHRA Triplett Attn: Accountin g,[address] [facility], [place], [address], [facility] 4 10:32:38 Benign essential hypertensio n 9302254 Active 2023 ZAHRA Triplett Attn: Accountin g,[address] [facility], [place], [address], [facility] 4 10:32:39 Obesity 044560471 Active 2023 ZAHRA Triplett Attn: Octavio sexton,[address] [facility], [place], [address], [facility] 4 10:33:18 Body mass index 30+ - obesity 186303268 Active 2023 ZAHRA Triplett Attn: Octavio sexton,[address] [place], [address], [place] [facility] 4 10:33:19 Family history of cancer of colon 098146011 Active 2023 ZAHRA Triplett Attn: Octavio sexton,[address] [place], [address], [facility] 4 15:27:40 Long-term drug therapy Active 2023 ZAHRA Triplett Attn: Octavio sexton,[address] [place], [address], [place] [facility] 4 15:27:51 Dyslipidemi a 788979821 Active 2023 ZAHRA Triplett Attn: Octavio sexton,[address] [place], [address], [facility] 4 15:28:20 Lesion of skin of face 473823080265 Active 2023 ZAHRA Triplett Attn: Octavio sexton,[address] [place], [address], [place] [facility] 4 09:19:39 Problem Notes None recorded. Procedures Surgical History None recorded. Imaging Results Imaging Date Name Status LastModified by [facility] Details LastModified Time 03/06/2024 XR, chest, 2 view completed [facility] [address], [place], [address], 04/10/2024 10:09:59 Procedure Notes None recorded. Medical Equipment None Reported. [...] Not Avai lable Vitals Date Recorded Body weight Body mass index (BMI) Body height Heart rate Oxygen saturation Oxygen saturation in Arterial blood by Pulse oximetry Systolic blood pressure Diastolic blood pressure Provider Name and Address Organization Details Last Updated DateTime 4 71532.2 1 g 32.6 kg/m2 170.18 cm 92 /min 97 % 97 % 162 mm[Hg] 100 mm[Hg] Angela Mesa MA [facility] 4 09:48:52 Date Recorded Systolic blood pressure Diastolic blood pressure Provider Name and Address Organization Details Last Updated DateTime 03/06/2024 150 mm[Hg] 92 mm[Hg] ZAHRA Triplett Attn: Accounting,[address] [place], [address], [facility] 03/06/2024 10:32:53 Date Recorded Body height Body mass index (BMI) Body weight Respiratory rate Oxygen saturation Oxygen saturation in Arterial blood by Pulse oximetry Heart rate Systolic blood pressure Diastolic blood pressure Provider Name and Address Organization Details Last Updated DateTime 4 170.18 cm 32.3 kg/m2 17202.4 7 g 18 /min 98 % 98 % 62 /min 140 mm[Hg] 88 mm[Hg] Ihsan Blanca MA [facility] 4 09:48:54 Date Recorded Systolic blood pressure Diastolic blood pressure Provider Name and Address Organization Details Last Updated DateTime 04/10/2024 130 mm[Hg] 84 mm[Hg] ZAHRA Triplett Attn: Accounting,[address] [place], [address], [facility] 04/10/2024 10:16:17 Date Recorded Body height Body mass index (BMI) Body weight Heart rate Oxygen saturation Oxygen saturation in Arterial blood by Pulse oximetry Systolic blood pressure Diastolic blood pressure Provider Name and Address Organization Details Last Updated DateTime 4 170.18 cm 32.5 kg/m2 96464.3 4 g 65 /min 98 % 98 % 150 mm[Hg] 98 mm[Hg] Brett Rubio MA [facility] 09:53:10 Date Recorded Systolic blood pressure Diastolic blood pressure Provider Name and Address Organization Details Last Updated DateTime 07/17/2024 150 mm[Hg] 90 mm[Hg] ZAHRA Triplett Attn: Accounting,[address] [place], [address], [facility] 07/17/2024 10:29:09 Date Recorded Body height Body mass index (BMI) Body weight Oxygen saturation Oxygen saturation in Arterial blood by Pulse oximetry Heart rate Systolic blood pressure Diastolic blood pressure Provider Name and Address Organization Details Last Updated DateTime 4 170.18 cm 32.2 kg/m2 41179.3 1 g 97 % 97 % 90 /min 140 mm[Hg] 80 mm[Hg] Adrienne Valentin MA [facility] 08:55:01 Date Recorded Respiratory rate Systolic blood pressure Diastolic blood pressure Provider Name and Address Organization Details Last Updated DateTime 09/11/2024 16 /min 128 mm[Hg] 82 mm[Hg] ZAHRA Triplett Attn: Accounting, [address] [place], [address], [facility] 09/11/2024 09:18:52 Social History Question Answer Notes LastModified by Organizat ion Details LastModified Time Tobacco Smoking Status Never Smoker Angela Mesa MA null, [facility] 03/06/2024 09:47:30 Do You Have An Advance [...] Anxious, Or Unable To Sleep At Night)? [id number] Information not available 03/06/2024 Do You Use [...] Diagnosis/Indication Diagnosis SNOMED-CT Code Diagnosis ICD10 Code [id number] ZAHRA Triplett [facility] [employer] [address] [place] [address] 03/06/2024 09:42:44 03/06/2024 10:36:39 Adult health examination 083999187 Z00.01 Uncontroll ed type 2 diabetes mellitus 635787579 E11.65 Benign ess ential hypertension 1033653 I10 Family his tory of cancer of colon 778016809 Z80.0 Screening for malignant neoplasm of prostate 091829649 Z12.5 Cholesterol screening 27 0855640 Z13.220 Long-term drug therapy 305113792 Z79.899 Thyroid di sorder screening 671347124 Z13.29 Persistent cough 1116023 02 R05.3 Body mass index 30+ - obesity 376411582 Z68.32 Obesity 381606403 E66.9 [id number] ZAHRA Triplett Angella Joy [address] [place] [address] 04/10/2024 09:29:46 04/10/2024 10:43:21 Benign essential hypertension 2766309 I10 Uncontroll ed type 2 diabetes mellitus 963451402 E11.65 Persistent cough 8650927 02 R05.3 Long-term drug therapy 577214173 Z79.899 Body mass index 30+ - obesity 765176726 Z68.32 Obesity 047640580 E66.9 Family his tory of cancer of colon 606315609 Z80.0 Dyslipidemia 962477898 E 78.5 [id number] ZAHRA Triplett [facility] [address] [place] [address] 07/17/2024 09:47:04 07/17/2024 11:02:39 Uncontrolled type 2 diabetes mellitus 987766880 E11.65 Benign ess ential hypertension 6214101 I10 Dyslipidemia 437301101 E 78.5 Long-term drug therapy 271647714 Z79.899 Body mass index 30+ - obesity 052459283 Z68.32 Obesity 252428167 E66.9 Family his tory of cancer of colon 375407914 Z80.0 [id number] ZAHRA Triplett [facility] [employer] [place] [address] [place] [address] 09/11/2024 08:36:59 09/11/2024 12:43:48 Benign essential hypertension 2586577 I10 Lesion of skin of face 5365969611 06 L98.9 Long-term drug therapy 413789588 Z79.899 Health Concerns Section Related Observation LastModified by Organization Detai ls LastModified Time None Recorded Concern Status LastModified by Organization Details LastModified Time None Recorded Advance Directives Directive N: Payers Encounter Date Sequence Insurance Name Policy Number Policy Mathis Covered Member ID Mathis Member ID Guarantor Name 03/06/2024 1 [employer] Alon Harp [id number] Alon Harp 04/10/2024 1 [employer] - [place] ([place] [id number] Alon Harp [id number] Alon Harp 07/17/2024 1 [facility] [place] [id number] Alon Harp [id number] Alon Harp 09/11/2024 1 [employer] - [place] [id number] Alon Harp [id number] Alon Harp Notes Date Note Type Note Provider Name and Address Organization Details Recorded Time 03/06/20 text/htm l DiabetesReported bypatient.Notes:Hx of diabetes, on medications 5 years ago and none in some time.HypertensionReported bypatient.Notes:pt has not been on BP meds in years. Re-establishing, knows provider from years ago ZAHRA Triplett Attn: Accounting,[address] [facility], [place], [address], [facility] [place] 03/06/2024 10:33:38 04/10/20 24 text/htm l DiabetesReported bypatient.Duration:chronic Control:usually well controlled; improved since last visit Compliance:compliant with medications; compliant with follow-up visits;noncompliant [...] no numbness of feet; no calluses on feetNotes:Bilateral diabetic foot exam done. He felt all 9 spots on both feet. HyperlipidemiaReported bypatient.Type of hyperlipidemia:hypercholester olemia Duration:new onset Control:not at goal Current Therapy:last cholesterol level: (165); last LDL level: (108); last triglyceride level: (132); last HDL level: (33) Compliance:compliant;noncompl iant with diet;does not exercise Complications:no coronary artery disease; no peripheral artery disease; no cardiovascular disease Risk Factors:diabetes;hypertension ;obesity;low HDL levelHypertensionReported bypatient.Notes:started on losartan 50mg daily at last visit. ZAHRA Triplett Attn: Accounting,[address] [facility], [place], [address], [facility] 04/19/2024 15:29:40 07/17/20 24 text/htm l DiabetesReported bypatient.Duration:chronic Control:usually [...] last visit. ZAHRA Triplett Attn: Accounting,[address] [place], [address], [facility] 08/09/2024 19:22:02 09/11/20 24 text/htm l DiabetesReported bypatient.Duration:chronic Control:usually well [...] feetNotes: A1c is down to 7.2% from 8.3%.HypertensionReported bypatient.Notes:started on losartan 50mg daily at last [...] seen the eye doctor. ZAHRA Triplett Attn: Accounting,[address] [place] [address], [place], [address], [facility] 09/11/2024 09:20:14
== END 2024-09-28 08:57 | disposition home or self-care (01) ==
PROVIDERS: PCP Physician Assistant; Visit Provider Internal Medicine Gastroenterology
PROC: 0DJD8ZZ Inspection of Lower Intestinal Tract, Via Natural or Artificial Opening Endoscopic (ICD-10-PCS; CPT 45378; principal; 2024-09-28 08:30)
DX: Z12.11 Encounter for screening for malignant neoplasm of colon (principal); K64.8 Other hemorrhoids; K57.30 Diverticulosis of large intestine without perforation or abscess without bleeding; I10 Essential (primary) hypertension; E11.9 Type 2 diabetes mellitus without complications; F17.210 Nicotine dependence, cigarettes, uncomplicated; E66.9 Obesity, unspecified; Z68.30 Body mass index [BMI] 30.0-30.9, adult; Z80.42 Family history of malignant neoplasm of prostate; Z80.0 Family history of malignant neoplasm of digestive organs; Z80.7 Family history of other malignant neoplasms of lymphoid, hematopoietic and related tissues
CPT/HCPCS: 45378; 82948; J2003; J2704; J7120